=== PATIENT | female | born 1980 | race Caucasian/White ===

== ENCOUNTER → 2019-06-15 | Outpatient (CLI) | payer BC ==
--- NOTE | 2019-06-16 15:23 | MR ---
EXAMINATION TYPE: MR brain wo/w con DATE OF EXAM: 06/15/2019 COMPARISON: MRI brain 7-14 HISTORY: Migraine / Nausea / Headache TECHNIQUE: Multiplanar, multisequence images of the brain and brainstem is performed without and with IV contras t, utilizing 4.5 mL intravenous Gadavist . FINDINGS: The brain volume is age appropriate. Diffusion weighted images demonstrate no evidence of a recent in farct or other diffusion abnormality. Punctate foci of T2/FLAIR hyperintensity within the subcortical white matter of the bifrontal lobes is nonspecific. The cerebellar tonsils are low-lying, stable. No signal abnormalities within the cerebellum, brainstem, or visualized upper cervical spinal cord. There is no extra-axial fluid collection. The ventricular system and cisternal spaces are normal in size and appearance. The dural venous sinuses appear patent. The visualized sinuses are clear and the globes are intact. IMPRESSION: 1. No acute infarct, intracranial hemorrhage, or mass lesion. 2. Stable low-lying cerebellar tonsils.
== END | disposition home or self-care (01) ==
LOC: RADMRIMAIN 14:25
PROVIDERS: ATTEND Family Medicine
DX: G93.89 Other specified disorders of brain (principal); R11.0 Nausea
CPT/HCPCS: 70553; A9585

== ENCOUNTER 2019-07-09 08:10 | Emergency (ER) | payer BC ==
[2019-07-09 08:23] VITALS: TEMP 97.6
[2019-07-09] MEDS ORDERED: KETOROLAC 30 MG/ML 1 ML VIAL IVP STA (08:42)
[2019-07-09] MEDS ORDERED: diphenhydrAMINE 50 MG/ML 1 ML VIAL IVP STA (08:42)
[2019-07-09] MEDS ORDERED: METOCLOPRAMIDE 5 MG/ML 2 ML VIAL IVP STA (08:42)
[2019-07-09] MEDS ORDERED: SODIUM CHLORIDE 0.9% 1,000 ML IV STA (08:42)
--- NOTE | 2019-07-09 08:45 | ED ---
General Adult HPI - General Chief complaint: Headache Stated complaint: migraine Time Seen by Provider: 07/09/19 08:30 Source: patient, RN notes reviewed Mode of arrival: ambulatory Limitations: no limitations - History of Present Illness Initial comments: 38-year-old female with a past medical history of migraines and occipital neuralgia presents to the emergency department for a chief complaint of headache 3 days. Patient states the pain is on the right side of her head and eye. States this feels consistent with previous migraines. States it was gradual onset and denies any maximal intensity at onset. Denies any visual changes. Does admit to light sensitivity and nausea. States that she saw her primary care provider yesterday and was given a Toradol shot without relief. Patient has no other complaints at this time including shortness of breath, chest pain, abdominal pain, nausea or vomiting, or visual changes. - Related Data Home Medications Medication Instructions Recorded Confirmed Calcium Carbonate [Calcium] 600 mg PO DAILY 07/09/19 07/09/19 Cholecalciferol [Vitamin D3 (25 1,000 unit PO DAILY 07/09/19 07/09/19 Mcg = 1000 Iu)] Fexofenadine HCl [Cydney Allergy] 180 mg PO DAILY 07/09/19 07/09/19 Levothyroxine Sodium [Synthroid] 25 mcg PO DAILY 07/09/19 07/09/19 Lo Lestrin Fe 1 tab PO DAILY 07/09/19 07/09/19 Montelukast [Singulair] 10 mg PO DAILY 07/09/19 07/09/19 Multivitamins, Thera [Multivitamin 1 tab PO DAILY 07/09/19 07/09/19 (formulary)] SUMAtriptan SUCCINATE [Imitrex] 100 mg PO DAILY PRN 07/09/19 07/09/19 Topiramate [Topamax] 50 mg PO BID 07/09/19 07/09/19 Allergies Allergy/AdvReac Type Severity Reaction Status Date / Time No Known Allergies Allergy Verified 07/09/19 08:41 Review of Systems ROS Statement: Those systems with pertinent positive or pertinent negative responses have been documented in the HPI. ROS Other: All systems not noted in ROS Statement are negative. Past Medical History Additional Past Medical History / Comment(s): migraines, occipital neuralgia History of Any Multi-Drug Resistant Organisms: None Reported Past Surgical History: Cholecystectomy Additional Past Surgical History / Comment(s): cyst removal Past Psychological History: No Psychological Hx Reported Smoking Status: Never smoker Past Alcohol Use History: None Reported Past Drug Use History: None Reported General Exam Limitations: no limitations General appearance: alert, in no apparent distress Head exam: Present: atraumatic, normocephalic, normal inspection Eye exam: Present: normal appearance, PERRL, EOMI. Absent: scleral icterus, conjunctival injection ENT exam: Present: normal exam, mucous membranes moist Neck exam: Present: normal inspection, full ROM. Absent: tenderness, meningismus, lymphadenopathy Respiratory exam: Present: normal lung sounds bilaterally. Absent: respiratory distress, wheezes, rales, rhonchi, stridor Cardiovascular Exam: Present: regular rate, normal rhythm, normal heart sounds. Absent: systolic murmur, diastolic murmur, rubs, gallop, clicks Neurological exam: Present: alert, oriented X3, CN II-XII intact, normal gait, other (GCS 15) Psychiatric exam: Present: normal affect, normal mood Course Vital Signs 07/09/19 07/09/19 08:21 10:26 Temperature 97.6 F Pulse Rate 87 77 Respiratory 18 16 Rate Blood Pressure 115/78 99/68 O2 Sat by Pulse 100 Oximetry Medical Decision Making - Medical Decision Making 38-year-old female presents to the emergency department for headache. Patient has had an MRI in the past which is normal. States that she has a history of migraines and this is exactly consistent with migraines. States pain is a 7 out of 10 and came on gradually 3 days ago. No focal neuro deficits. Patient was given migraine cocktail with some improvement. She was then given additional pain medication with more significant improvement. States she feels ready to go home at this time. She will follow up with primary care for possible neurology referral and return here if she has any worsening symptoms. - Lab Data Lab Results 07/09/19 Range/Units 08:55 Urine HCG, Qual Not Detected (Not Detectd) Disposition Clinical Impression: Migraine headache Disposition: HOME SELF-CARE Condition: Good Instructions (If sedation given, give patient instructions): Migraine Headache (ED) Additional Instructions: Please follow up with primary care in 1-2 days. Return to the emergency department if you have any worsening symptoms. Is patient prescribed a controlled substance at d/c from ED?: No Referrals: Tristin Oliver III, MD [Primary Care Provider] - 1-2 days Time of Disposition: 10:57
[2019-07-09] MEDS ORDERED: MORPHINE SULFATE 4 MG/ML SYRINGE IVP STA (09:45)
[2019-07-09] MEDS ORDERED: DEXAMETHASONE SOD PHOSPHATE 10 MG/ML 1 ML VIAL IV STA (09:45)
[2019-07-09 10:27] VITALS: BP 99/68; PULSE 77; RESP 16
== END 2019-07-09 11:15 | disposition home or self-care (01) ==
LOC: EC 08:10
DX: G43.909 Migraine, unspecified, not intractable, without status migrainosus (principal); Z32.02 Encounter for pregnancy test, result negative; Z79.890 Hormone replacement therapy; Z79.899 Other long term (current) drug therapy
CPT/HCPCS: 81025; 99283; 96374; 96375 ×4; 96361; J2270; J1200; J1100; J2765; J1885

== ENCOUNTER → 2021-04-01 | Outpatient (CLI) | payer BC ==
--- NOTE | 2021-04-02 11:42 | MM ---
Reason for exam: screening (asymptomatic). Last mammogram was performed 5 years and 3 months ago. History: Family history of breast cancer in mother at age 50 and breast cancer in maternal grandmother at age 50. Taking hormonal contraceptives for 2 years beginning at age 33. Physical Findings: A clinical breast exam by your physician is recommended on an annual basis and results should be correlated with mammographic findings. MG 3D Screening Mammo W/Cad Bilateral CC and MLO view(s) were taken. Prior study comparison: December 24, 2015, bilateral MG screening mammo w CAD. The breast tissue is heterogeneously dense. This may lower the sensitivity of mammography. No significant changes when compared with prior studies. ASSESSMENT: Benign, BI-RAD 2 RECOMMENDATION: Routine screening mammogram of both breasts in 1 year.
== END | disposition home or self-care (01) ==
LOC: RADMAMWWP 06:53
PROVIDERS: ATTEND Family Medicine
DX: Z12.31 Encounter for screening mammogram for malignant neoplasm of breast (principal)
CPT/HCPCS: 77063; 77067

== ENCOUNTER → 2021-04-28 | Outpatient (CLI) | payer BC ==
--- NOTE | 2021-04-28 22:46 | MR ---
EXAMINATION TYPE: MR brain wo/w con DATE OF EXAM: 04/28/2021 COMPARISON: 06/15/2019 HISTORY: Evaluating for possible MS, migraines, smelling issues, history of numbness on left and righ t side. CONTRAST: Performed utilizing 5 mL intravenous Gadavist gadolinium contrast. TECHNIQUE: Multiplanar, multiecho imaging on a 3.0 Barbara magnet is performed through the brain. Stud y is performed within 24 hours of arrival to the hospital. The craniovertebral junction is normal. Tonsillar descent is unchanged from comparison. The pituitary is normal. Diffusion-weighted imaging is performed. No abnormal hyperintensity is present to suggest an acute i ntracranial infarct or acute ischemic change. New white matter changes adjacent to the anterior horn right lateral ventricle measures 0.4 x 0.5 x 0 .2 m. A few subcortical white matter changes in the bilateral centrum semiovale are stable from mirna rison. Findings are nonspecific. Migraine headaches could be considered. Microvascular ischemic lake e could be considered. Multiple sclerosis is not excluded. Cribriform plate appears intact. No inferior frontal lobe abnormality is identified. Ventricles and sulci are appropriate for the patient age. No abnormal enhancement is evident. IMPRESSIONS: 1. Scattered punctate areas of hyperintensity are largely stable from comparison. There is a new 0.4 x 0.5 x 0.2 cm area within the white matter adjacent to the anterior horn right lateral ventricle. Di fferential diagnosis includes but is not limited to migraine headaches, microvascular ischemic change , multiple sclerosis.
== END | disposition home or self-care (01) ==
LOC: RADMRIMAIN 20:36
PROVIDERS: ATTEND Family Medicine
DX: G43.009 Migraine without aura, not intractable, without status migrainosus (principal); R43.8 Other disturbances of smell and taste; R47.01 Aphasia; R20.2 Paresthesia of skin; R25.2 Cramp and spasm
CPT/HCPCS: 70553; A9585

== ENCOUNTER 2021-06-08 06:11 | Day surgery (SDC) | payer BC ==
[2021-06-03 12:49] VITALS: BMI 19.1
[2021-06-08 06:34] VITALS: RESP 16; TEMP 97.9
[2021-06-08] MEDS: LACTATED RINGERS 1,000 ML IV SCH ×3 (06:34→08:56)
[2021-06-08] MEDS ORDERED: LIDOCAINE 1% (10MG/ML) FOR IV START INTRADERMA ONE (06:35)
[2021-06-08] MEDS ORDERED: MIDAZOLAM 2 MG/2 ML VIAL ONE (07:55)
[2021-06-08] MEDS ORDERED: LACTATED RINGERS 1,000 ML IV ONE ×2 (08:14)
--- NOTE | 2021-06-08 08:15 | P.PCN ---
Date of Procedure: 06/08/21 Surgeon: Miles Barboza Pathology: none sent Condition: stable Disposition: PACU Description of Procedure: Procedure=1-lumbar puncture . Preoperative diagnoses= demyelinating lesions in the brain Postoperative diagnosis= same as above Anesthesia= IV sedation with Versed and local lidocaine infiltration 1% 2 mL for skin and subcu infiltration. Condition= stable. Complications=none. Indication for the procedure: The patient was referred to us by her neurologist for diagnostic lumbar puncture to rule out multiple sclerosis. procedure risk and benefits and alternatives discussed with the patient and she was agreeable to proceeding with it. Description of the procedure=the patient was brought into the procedure room and placed in the sitting position , monitors applied, the back prepped with chlorhexidine , skin was localized with 1% lidocaine, then 22-gauge quinckie Needle advanced slowly at L4 -5 interlaminar space to get access to the intrathecal space. The needle bevel turned 90 before entering the thecal sac to decrease the risk of postdural puncture headache. Cerebrospinal fluid was clear with no heme. Only one attempt was needed. No paresthesia was encountered during this procedure .A total of 6 mL of clear cerebrospinal fluid were collected in 4 different tubes, the needle removed, Band-Aid applied , patient tolerated the procedure well without any complications. Further m anagement as per her neurologist.
[2021-06-08 08:56] VITALS: BP 102/68; PULSE 88
[2021-06-08 09:01] LABS: Glucose,CSF 53 mg/dL (40-70); Total Protein,CSF 49 mg/dL (12-60)
[2021-06-08 09:21] LABS: ALT 16 U/L (4-34); AST 29 U/L (14-36)
[2021-06-08 15:28] LABS: Appearance,CSF Clear; CSF Tube Number 3; CSF Tube Volume 1.8; Nucleated Cells, CSF 0 u/L (0-5); Red Blood Cell,CSF 0 u/L (0-10)
[2021-06-08 20:00] LABS: Rheumatoid Factor, Qnt 20 IU/mL (0-15)
[2021-06-08 21:09] LABS: Anti-Smith Ab Interp NEGATIVE (NEGATIVE); DNA Double-Stranded NEGATIVE (NEGATIVE)
[2021-06-10 13:02] LABS: IgG - CSF 2.5 mg/dL (0.0 - 3.4); IgG/Albumin Index (CSF) 0.46 (0.00 - 0.77)
[2021-06-11 10:55] LABS: VDRL, Qualitative CSF Nonreactive (Nonreactive)
== END 2021-06-08 09:05 | disposition home or self-care (01) ==
LOC: ORPAIN 06:11
PROVIDERS: ATTEND Anesthesiology
DX: G93.9 Disorder of brain, unspecified (principal)
CPT/HCPCS: 62270; 81025; 86592; 86235 ×3; 88108; 84157; 82945; 82040; 82042; 82784; 83916; 84436; 84443; 84450; 84460; 86431; 89050; 86618; 86038; 86225; 87801; J2250; 99152

== ENCOUNTER → 2021-06-11 | Day surgery (SDC) | payer BC ==
[~2021-06-11] MED LIST: LACTATED RINGERS 1,000 ML IV ONE; LIDOCAINE 1% (10MG/ML) FOR IV START INTRADERMA ONE
[2021-06-11 13:55] VITALS: TEMP 98.5
--- NOTE | 2021-06-11 15:13 | P.PCN ---
Date of Procedure: 06/11/21 Procedure(s) Performed: Procedure= lumbar epidural blood patch. Preoperative diagnosis= postdural puncture headache. Postoperative diagnoses= post dural puncture headache. Indication for the procedure= patient developed headache after lumbar puncture which was done 2 days ago, headache persists in spite of conservative treatment, there is no focal neurological deficit, no fever, no neck stiffness, headache worse with sitting and standing position, and improved with lying supine, for this reason patient is a good candidate for epidural blood patch. anesthesia= local infiltration with lidocaine 1% 3 mL. Complications= none. Description of the procedure= patient identified risks and benefits of the pr ocedure explained to the patient and patient agreed with proceeding, vital signs monitored during the procedure, Back lumbar area prepped with chlorhexidine 3 times, then drape applied the local infiltration of the skin and subcutaneous tissue with lidocaine 1% 3 mL at L5-S1 interlaminar space then 18-gauge Tuohy needle advanced slowly at L5-S1 interlaminar space, There was positive loss of resistance to normal saline, no heme no paresthesia no cerebrospinal fluid, then after that 20 ML of the blood taken from the patient under strict sterile technique, and after the antecubital area prepped with a chlorhexidine 3 times using 20-gauge Angiocath, and under sterile technique the 20 ML of the block taken from the patient injected in the epidural space after negative aspiration for heme or CSF and there was no paresthesia then the needle removed intact the skin cleaned and the , bandage applied and patient discharged home in stable condition after discharge criteria met, and patient will follow up with the clinic in 2-4 weeks note= the block taken from the right brachial artery because patient was very difficult IV access,
[2021-06-11 15:29] VITALS: BP 113/81; PULSE 50; RESP 17
== END ==
LOC: OR 13:32
PROVIDERS: ATTEND Specialist
DX: G97.1 Other reaction to spinal and lumbar puncture (principal)
CPT/HCPCS: 62273; 81025

== ENCOUNTER 2021-07-03 19:46 | Emergency (ER) | payer BC ==
[2021-07-03 19:51] VITALS: BP 115/81; PULSE 69; RESP 19; TEMP 98.1
[2021-07-03] MEDS ORDERED: SODIUM CHLORIDE 0.9% 1,000 ML IV STA (20:09)
[2021-07-03] MEDS ORDERED: MORPHINE SULFATE 4 MG/ML SYRINGE IV STA (20:09)
[2021-07-03] MEDS ORDERED: diphenhydrAMINE 50 MG/ML 1 ML VIAL IVP STA (20:09)
[2021-07-03] MEDS ORDERED: ONDANSETRON 4 MG/2 ML VIAL IVP STA (20:09)
--- NOTE | 2021-07-03 21:47 | ED ---
Headache HPI - General Chief Complaint: Headache Stated Complaint: migraine Time Seen by Provider: 07/03/21 19:58 Source: patient, RN notes reviewed Mode of arrival: ambulatory - History of Present Illness Initial Comments: Patient is a 40-year-old female that presents to emergency department complaining of a migraine type headache. She notes she does get these occasionally. She notes that this one is slightly worse than her usual and her at home medications did not help. She denied any injury or trauma. She was otherwise well-appearing 40-year-old female. She denied any chest pain shortness of breath vomiting diarrhea constipation fever fatigue chills. - Related Data Home Medications Medication Instructions Recorded Confirmed Calcium Carbonate [Calcium] 600 mg PO DAILY 07/09/19 07/03/21 Cholecalciferol [Vitamin D3 (25 25 mcg PO DAILY 07/09/19 07/03/21 Mcg = 1000 Iu)] Fexofenadine HCl [Cydney Allergy] 180 mg PO DAILY 07/09/19 07/03/21 Levothyroxine Sodium [Synthroid] 25 mcg PO DAILY 07/09/19 07/03/21 Montelukast [Singulair] 10 mg PO DAILY 07/09/19 07/03/21 Multivitamins, Thera [Multivitamin 1 tab PO DAILY 07/09/19 07/03/21 (formulary)] Topiramate [Topamax] 50 mg PO BID 07/09/19 07/03/21 Biotin 10,000 mcg PO DAILY 06/03/21 07/03/21 Calcium Carb/Mag Ox/Zinc Sulf 1 each PO DAILY 06/03/21 07/03/21 [Yfx-Wmh-Apik 334-134-5 mg Tab] Cyanocobalamin (Vitamin B-12) 2,500 mcg PO DAILY 06/03/21 07/03/21 [Vitamin B-12] Galcanezumab-Gnlm [Emgality] 120 mg SQ Q30D 06/03/21 07/03/21 Lo Loestrin Fe 1-10mg 1 tab PO DAILY 07/03/21 07/03/21 Naratriptan HCl 2.5 mg PO DAILY PRN 07/03/21 07/03/21 Allergies Allergy/AdvReac Type Severity Reaction Status Date / Time No Known Allergies Allergy Verified 07/03/21 21:36 Review of Systems ROS Statement: Those systems with pertinent positive or pertinent negative responses have been documented in the HPI. ROS Other: All systems not noted in ROS Statement are negative. Past Medical History Additional Past Medical History / Comment(s): migraines, occipital neuralgia. SEASONAL ALLERGIES. BEING CHECKED FOR POSSIBLE MS History of Any Multi-Drug Resistant Organisms: None Reported Past Surgical History: Cholecystectomy Additional Past Surgical History / Comment(s): cyst removal FROM WRIST Past Anesthesia/Blood Transfusion Reactions: No Reported Reaction Past Psychological History: No Psychological Hx Reported Smoking Status: Never smoker Past Alcohol Use History: None Reported Past Drug Use History: None Reported - Past Family History Mother Family Medical History: Cancer General Exam General appearance: alert, in no apparent distress Head exam: Present: atraumatic, normocephalic, normal inspection Eye exam: Present: normal appearance, PERRL, EOMI. Absent: scleral icterus, conjunctival injection, periorbital swelling ENT exam: Present: normal exam, mucous membranes moist Neck exam: Present: normal inspection Respiratory exam: Present: normal lung sounds bilaterally. Absent: respiratory distress, wheezes, rales, rhonchi, stridor Cardiovascular Exam: Present: regular rate, normal rhythm, normal heart sounds. Absent: systolic murmur, diastolic murmur, rubs, gallop, clicks GI/Abdominal exam: Present: soft, normal bowel sounds. Absent: distended, tenderness, guarding, rebound, rigid Extremities exam: Present: normal inspection, full ROM, normal capillary refill. Absent: tenderness, pedal edema, joint swelling, calf tenderness Neurological exam: Present: alert, oriented X3 Psychiatric exam: Present: normal affect, normal mood Skin exam: Present: warm, dry, intact, normal color. Absent: rash Course Vital Signs 07/03/21 19:48 Temperature 98.1 F Pulse Rate 69 Respiratory 19 Rate Blood Pressure 115/81 O2 Sat by Pulse 98 Oximetry Medical Decision Making - Medical Decision Making 40-year-old female complaining of migraine type headache. 4 mg of morphine, 4 mg Zofran, 50 mg of Benadryl, 1 L normal saline ordered. Upon reevaluation patient states that she is feeling much better and is ready to go home. Case discussed with Dr. Sarmiento, patient can discharge home with follow-up primary care. Disposition Clinical Impression: Migraine headache Disposition: HOME SELF-CARE Condition: Stable Instructions (If sedation given, give patient instructions): Acute Headache (ED) Additional Instructions: Please return to the Emergency Department if symptoms worsen or any other concerns. Is patient prescribed a controlled substance at d/c from ED?: No Referrals: Tristin Oliver III, MD [Primary Care Provider] - 1-2 days Time of Disposition: 21:47
== END 2021-07-03 22:01 | disposition home or self-care (01) ==
LOC: EC 19:46
DX: G43.909 Migraine, unspecified, not intractable, without status migrainosus (principal); Z79.899 Other long term (current) drug therapy
CPT/HCPCS: 99283; 96374; 96375; 96361; J2270; J1200; J2405

== ENCOUNTER → 2022-05-19 | Outpatient (CLI) | payer BC ==
--- NOTE | 2022-05-20 07:06 | MM ---
Reason for Exam: Screening (asymptomatic). Last mammogram was performed 1 year(s) and 2 month(s) ago. Patient History: Menarche at age 12. First Full-Term at age 22. Currently using Hormonal Contraceptives, beginning at age 33 for 8 years. Maternal grandmother had breast cancer, age 50. Mother had breast cancer, age 50. Risk Values: Jessica 5 year model risk: 1.2%. NCI Lifetime model risk: 18.2%. Prior Study Comparison: 12/24/2015 Bilateral Screening Mammogram, [facility]. 04/01/2021 Bilateral Screening Mammogram, [facility]. Tissue Density: The breast tissue is extremely dense which could obscure a lesion on mammography. Findings: Analyzed By CAD. There is no suspicious group of microcalcifications or new suspicious mass in either breast. Overall Assessment: Negative, BI-RAD 1 Management: Screening Mammogram of both breasts in 1 year. Some advise annual bilateral breast ultrasound surveillance in patients with background extremely dense tissue. Electronically signed and approved by: David Temple M.D.
== END | disposition home or self-care (01) ==
LOC: RADMAMWWP 06:51
PROVIDERS: ATTEND Obstetrics & Gynecology
DX: Z12.31 Encounter for screening mammogram for malignant neoplasm of breast (principal)
CPT/HCPCS: 77063; 77067

== ENCOUNTER → 2022-08-16 | Outpatient (CLI) | payer BC | END | disposition home or self-care (01) | LOC: LABWHC1 16:18 | PROVIDERS: ATTEND Otolaryngology | DX: J30.89 Other allergic rhinitis (principal) | CPT/HCPCS: 36415 ==

== ENCOUNTER 2023-01-16 07:42 | Emergency (ER) | payer BC ==
[2023-01-16 07:54] VITALS: TEMP 98.1
[2023-01-16] MEDS ORDERED: DEXAMETHASONE SOD PHOSPHATE 10 MG/ML 1 ML VIAL IVP STA (08:10)
[2023-01-16] MEDS ORDERED: MAGNESIUM SULFATE-D5W PMX 1 GM in DEXTROSE/WATER 1 100ML.BAG IVPB ONE (08:10)
[2023-01-16] MEDS ORDERED: diphenhydrAMINE 50 MG/ML 1 ML VIAL IVP STA (08:10)
[2023-01-16] MEDS ORDERED: SODIUM CHLORIDE 0.9% 1,000 ML IV STA (08:10)
[2023-01-16] MEDS ORDERED: METOCLOPRAMIDE 5 MG/ML 2 ML VIAL IVP STA (08:10)
[2023-01-16] MEDS ORDERED: KETOROLAC 15 MG/ML 1 ML VIAL IVP STA (08:10)
[2023-01-16] MEDS ORDERED: MORPHINE SULFATE 2 MG/ML SYRINGE IVP ONE (10:47)
--- NOTE | 2023-01-16 10:49 | ED ---
General Adult HPI - General Chief complaint: Headache Stated complaint: Migraine Time Seen by Provider: 01/16/23 07:55 Source: patient Mode of arrival: ambulatory Limitations: no limitations - History of Present Illness Initial comments: 42-year-old female with past history of migraine headaches who presents to the emergency department with a migraine. She has had migraines for several years. She is on several medications for her migraines. States that she began having a migraine on night. Has taken all the medications that she has access to at home for her migraines however nothing is improving. She has had a come to the hospital once for a migraine cocktail. She used to follow with a neurologist and has [facility] been [facility]. She has had an MRI and a lumbar puncture with the only diagnosis of migraines. She denies any trauma. No fevers or chills. No trauma. No drug use. Denies concern for . No other alleviating, precipitating or modifying factors - Related Data Home Medications Medication Instructions Recorded Confirmed Calcium Carbonate [Calcium] 600 mg PO DAILY 07/09/19 07/03/21 Cholecalciferol [Vitamin D3 (25 25 mcg PO DAILY 07/09/19 07/03/21 Mcg = 1000 Iu)] Fexofenadine HCl [C[place]ney Allergy] 180 mg PO DAILY 07/09/19 07/03/21 Levothyroxine Sodium [Synthroid] 25 mcg PO DAILY 07/09/19 07/03/21 Montelukast [Singulair] 10 mg PO DAILY 07/09/19 07/03/21 Multivitamins, Thera [Multivitamin 1 tab PO DAILY 07/09/19 07/03/21 (formulary)] Topiramate [Topamax] 50 mg PO BID 07/09/19 07/03/21 Biotin 10,000 mcg PO DAILY 06/03/21 07/03/21 Calcium Carb/Mag Ox/Zinc Sulf 1 each PO DAILY 06/03/21 07/03/21 [Mgw-Agm-Gwzt 334-134-5 mg Tab] Cyanocobalamin (Vitamin B-12) 2,500 mcg PO DAILY 06/03/21 07/03/21 [Vitamin B-12] Galcanezumab-Gnlm [Emgality] 120 mg SQ Q30D 06/03/21 07/03/21 Lo Loestrin Fe 1-10mg 1 tab PO DAILY 07/03/21 07/03/21 Naratriptan HCl [Amerge] 2.5 mg PO DAILY PRN 07/03/21 07/03/21 Allergies Allergy/AdvReac Type Severity Reaction Status Date / Time No Known Allergies Allergy Verified 01/16/23 07:54 Review of Systems ROS Statement: Those systems with pertinent positive or pertinent negative responses have been documented in the HPI. ROS Other: All systems not noted in ROS Statement are negative. Past Medical History Additional Past Medical History / Comment(s): migraines, occipital neuralgia. SEASONAL ALLERGIES. BEING CHECKED FOR POSSIBLE MS History of Any Multi-Drug Resistant Organisms: None Reported Past Surgical History: Cholecystectomy Additional Past Surgical History / Comment(s): cyst removal FROM WRIST Past Anesthesia/Blood Transfusion Reactions: No Reported Reaction Past Psychological History: No Psychological Hx Reported Smoking Status: Never smoker Past Alcohol Use History: None Reported Past Drug Use History: None Reported - Past Family History Mother Family Medical History: Cancer General Exam Limitations: no limitations General appearance: alert, in no apparent distress Head exam: Present: atraumatic, normocephalic, normal inspection Eye exam: Present: normal appearance, PERRL, EOMI. Absent: scleral icterus, conjunctival injection, periorbital swelling ENT exam: Present: normal exam, mucous membranes moist Neck exam: Present: normal inspection. Absent: tenderness, meningismus, lymphadenopathy Respiratory exam: Present: normal lung sounds bilaterally. Absent: respiratory distress, wheezes, rales, rhonchi, stridor Cardiovascular Exam: Present: regular rate, normal rhythm, normal heart sounds. Absent: systolic murmur, diastolic murmur, rubs, gallop, clicks GI/Abdominal exam: Present: soft, normal bowel sounds. Absent: distended, tenderness, guarding, rebound, rigid Extremities exam: Present: normal inspection, full ROM, normal capillary refill. Absent: tenderness, pedal edema, joint swelling, calf tenderness Back exam: Present: normal inspection Neurological exam: Present: alert, oriented X3, CN II-XII intact Psychiatric exam: Present: normal affect, normal mood Skin exam: Present: warm, dry, intact, normal color. Absent: rash Course Vital Signs 01/16/23 01/16/23 07:53 11:00 Temperature 98.1 F Pulse Rate 110 H 89 Respiratory 20 18 Rate Blood Pressure 113/82 102/65 O2 Sat by Pulse 99 98 Oximetry Medical Decision Making - Medical Decision Making Was pt. sent in by a medical professional or institution (KARINA Sinclair, [employer]URING SUPERVISOR, urgent care, hospital, or [facility]...) When possible be specific @ -No Did you speak to anyone other than the patient for history (EMS, parent, family, police, friend...)? What history was obtained from this source @ -No Did you review nursing and triage notes (agree or disagree)? Why? @ -I reviewed and agree with nursing and triage notes Were old charts reviewed (outside hosp., previous admission, EMS record, old EKG, old radiological studies, urgent care reports/EKG's, [facility] records)? Report findings @ -old charts were reviewed Differential Diagnosis (chest pain, altered mental status, abdominal pain women, abdominal pain men, vaginal bleeding, weakness, fever, dyspnea, syncope, headache, dizziness, GI bleed, back pain, seizure, CVA, palpatations, mental health, musculoskeletal)? @ -migraine, SAH, SDH, anerysm, menigitis EKG interpreted by me (3pts min.). @ -No X-rays interpreted by me (1pt min.). @ -No CT interpreted by me (1pt min.). @ -No U/S interpreted by me (1pt. min.). @ -None done What testing was considered but not performed or refused? (CT, X-rays, U/S, labs)? Why? @ -None What meds were considered but not given or refused? Why? @ -None Did you discuss the management of the patient with other professionals (professionals i.e. KARINA Sinclair, [employer]URING SUPERVISOR, lab, RT, psych nurse, social security assessor, tile setter, teacher, animal services officer, community case manager)? Give summary @ -No Was smoking cessation discussed for >3mins.? @ -No Was critical care preformed (if so, how long)? @ -No Were there social determinants of health that impacted care today? How? (Homelessness, low income, unemployed, alcoholism, drug addiction, transportation, low edu. Level, literacy, decrease access to med. care, custodial, rehab)? @ -No Was there de-escalation of care discussed even if they declined (Discuss DNR or withdrawal of care, Hospice)? DNR status @ -No What co-morbidities impacted this encounter? (DM, HTN, Smoking, COPD, CAD, Cancer, CVA, ARF, Chemo, Hep., AIDS, mental health diagnosis, sleep apnea, morbid obesity)? @ -None Was patient admitted / discharged? Hospital course, mention meds given and route, prescriptions, significant lab abnormalities, going to OR and other pertinent info. @ -Upon arrival patient is placed into room 10. A thorough history and physical exam was performed. IV access established. Patient was given a migraine cocktail. She is reevaluated reports that her pain is down to a 5 out of 10. She was given additional dose of morphine. Patient reevaluated reports to continued improvement in her headache. She feels comfortable being discharged home at this time. She felt a primary care doctor to 4 days and return for any new or worsening symptoms per patient was agreeable to plan and was discharged home in stable condition Undiagnosed new problem with uncertain prognosis? @ -No Drug Therapy requiring intensive monitoring for toxicity (Heparin, Nitro, Insu bunny, Cardizem)? @ -No Were any procedures done? @ -No Diagnosis/symptom? @ -acute migraine Acute, or Chronic, or Acute on Chronic? @ -acute on chronic Uncomplicated (without systemic symptoms) or Complicated (systemic symptoms)? @ -complicated Side effects of treatment? @ -allergic reaction Exacerbation, Progression, or Severe Exacerbation? @ -No Poses a threat to life or bodily function? How? (Chest pain, USA, MD, pneumonia, PE, COPD, DKA, ARF, appy, cholecystitis, CVA, Diverticulitis, Homicidal, Suicidal, threat to staff... and all critical care pts) @ -no Disposition Clinical Impression: Migraine headache Disposition: HOME SELF-CARE Condition: Stable Instructions (If sedation given, give patient instructions): Acute Headache (ED) Additional Instructions: Please continue taking all of your home medications as needed and return for any new or worsening symptoms Is patient prescribed a controlled substance at d/c from ED?: No Referrals: Tristin Oliver III, MD [Primary Care Provider] - 1-2 days Time of Disposition: 10:48
[2023-01-16 11:13] VITALS: BP 102/65; PULSE 89; RESP 18
== END 2023-01-16 11:13 | disposition home or self-care (01) ==
LOC: EC 07:42
DX: G43.909 Migraine, unspecified, not intractable, without status migrainosus (principal)
CPT/HCPCS: 99284; 96365; 96375 ×5; 96361; J1200; J1100; J2765; J2270; J3475; J1885

== ENCOUNTER → 2023-04-22 | Outpatient (CLI) | payer BC ==
--- NOTE | 2023-04-22 09:15 | XR ---
EXAMINATION TYPE: XR lumbar spine 2 or 3V DATE OF EXAM: 04/22/2023 CLINICAL HISTORY: pain TECHNIQUE: Three views of the lumbar spine are submitted. COMPARISON: None. FINDINGS: There are 5 lumbar type vertebral bodies identified. The lumbar spine shows satisfactory alignment w ithout evidence of acute fracture or dislocation. Vertebral body heights are within normal limits. Disc spaces are within normal limits. The overlying soft tissue appears unremarkable. Cholecystectom y clips in the right upper quadrant. IMPRESSION: No acute fracture or dislocation is seen in the lumbar spine.
--- NOTE | 2023-04-22 09:16 | XR ---
EXAMINATION TYPE: XR Hip Bilateral Complete DATE OF EXAM: 04/22/2023 9:08 AM INDICATION: Patient age:Female; 42 years old; Reason for study: M25.551, M25.552; [facility]. COMPARISON: None. TECHNIQUE: Both hips were examined in frontal and lateral projections. FINDINGS: No evidence of any acute osseous pathology, joint dislocation, or soft tissue swelling. No disc narrowing or spurring noted. Sclerotic focus within the left femoral head likely representing a benign bone island. Few pelvic phleboliths. IMPRESSION: No acute osseous pathology.
[2023-04-22 23:16] LABS: Basophils # (A) 0.03 X 10*3/uL (0.00-0.10); Basophils % (A) 0.6 %; Eosinophils # (A) 0.09 X 10*3/uL (0.04-0.35); Eosinophils % (A) 1.7 %; HCT 39.2 % (37.2-46.3); HGB 13.5 d/dL (12.0-15.0); Lymphocytes # (A) 1.16 X 10*3/uL (0.90-5.00); Lymphocytes % (A) 21.8 %; MCH 30.8 pg (27.0-32.0); MCHC 34.4 d/dL (32.0-37.0); MCV 89.5 FL (80.0-97.0); Mean Platelet Volume 11.6 FL (9.5-12.2); Monocytes # (A) 0.39 X 10*3/uL (0.20-1.00); Monocytes % (A) 7.3 %; NRBC Per 100 WBC 0 X 10*3/uL (0.00-0.01); Neutrophils # (A) 3.63 X 10*3/uL (1.80-7.70); Neutrophils % (A) 68.4 %; Platelet Count 330 X 10*3/uL (140-440); RBC 4.38 X 10*6/uL (4.10-5.20); RDW 11.6 % (11.5-14.5); WBC 5.31 X 10*3/uL (4.50-10.00)
[2023-04-22 23:33] LABS: Erythrocyte Sedimentation Rate 3 mm/Hr (0-20)
[2023-04-23 00:06] LABS: % Iron Saturation 34.35 (12.00-45.00); ALT 16 U/L (8-44); AST 21 U/L (13-35); Albumin/Globulin Ratio 1.54 Ratio (1.60-3.17); Alkaline Phosphatase 98 U/L (41-126); Blood Urea Nitrogen 8.7 mg/dL (9.0-27.0); Calcium 9.1 mg/dL (8.7-10.3); Carbon Dioxide 22.2 mmol/L (21.6-31.8); Chloride 103 mmol/L (96-109); Chol/HDL Ratio 3.02 Ratio; Creatine Kinase 55 U/L (26-186); Globulin 2.6 d/dL (1.6-3.3); Glucose 93 mg/dL (70-110); Iron 124 UG/DL (50-170); LDL Cholesterol,Calculated 96.7 mg/dL (0.0-131.0); Magnesium 2.2 mg/dL (1.5-2.4); Potassium 4.6 mmol/L (3.5-5.5); Rheumatoid Factor, Qnt <15 IU/mL (0-15); Sodium 137 mmol/L (135-145); Total Bilirubin 0.5 mg/dL (0.3-1.2); Total Iron Binding Capacity 361 UG/DL (228-460); Total Protein 6.6 d/dL (6.2-8.2); VLDL Calculation 13.58 mg/dL (5.00-40.00)
[2023-04-24 12:46] LABS: Cyclic Citrull Pep IgG Unit <1.5 U/mL (<=3.9); Cyclic Citrullinated Pep IgG Negative
== END | disposition home or self-care (01) ==
LOC: LABWHC1 08:27
PROVIDERS: ATTEND Family Medicine
DX: Z00.00 Encounter for general adult medical examination without abnormal findings (principal); G25.81 Restless legs syndrome; M25.551 Pain in right hip; M25.552 Pain in left hip; M54.50 Low back pain, unspecified
CPT/HCPCS: 36415; 72100; 73521; 80053; 80061; 82550; 82607; 82728; 82746; 83540; 83550; 83735; 85025; 85652; 86038; 86140; 86200; 86431

== ENCOUNTER → 2023-06-05 | Outpatient (CLI) | payer BC ==
--- NOTE | 2023-06-06 08:47 | MM ---
Reason for Exam: Screening (asymptomatic). Last screening mammogram was performed 12 month(s) ago. Patient History: Menarche at age 12. First Full-Term at age 22. Patient has history of breast feeding. Currently using Hormonal Contraceptives, beginning at age 33 for 8 years. Maternal grandmother had breast cancer, age 50. Mother had breast cancer, age 50. Last menstrual period: 05/01/2015 Risk Values: Jessica 5 year model risk: 1.3%. NCI Lifetime model risk: 18.0%. Prior Study Comparison: 12/24/2015 Bilateral Screening Mammogram, [facility]. 04/01/2021 Bilateral Screening Mammogram, [facility]. 05/19/2022 Bilateral MG 3D screening mammo w/cad, [facility]. Tissue Density: The breast tissue is heterogeneously dense. This may lower the sensitivity of mammography. Findings: Analyzed By CAD. There is no suspicious group of microcalcifications or new suspicious mass in either breast. Overall Assessment: Negative, BI-RAD 1 Management: Screening Mammogram of both breasts in 1 year. A clinical breast exam by your physician is recommended on an annual basis and results should be correlated with mammographic findings. Note on Jessica scores and lifetime risk: 1. A Jessica score greater than 3% is considered moderate risk. If this is the case, consider specialist referral to assess eligibility for a risk reducing agent. If overall lifetime risk for the development of breast cancer is 20% or higher, the patient may qualify for future screening with alternating mammogram and breast MRI. Electronically signed and approved by: Heriberto Hussein D.O.
== END | disposition home or self-care (01) ==
LOC: RADMAMWWP 16:23
PROVIDERS: ATTEND Obstetrics & Gynecology
DX: Z12.31 Encounter for screening mammogram for malignant neoplasm of breast (principal); Z80.3 Family history of malignant neoplasm of breast
CPT/HCPCS: 77063; 77067

== ENCOUNTER → 2024-02-23 | Outpatient (CLI) | payer BC ==
--- NOTE | 2024-02-23 16:12 | XR ---
Right knee. HISTORY: Pain. COMPARISON: None TECHNIQUE: 2 views of the right knee were obtained. FINDINGS: There is no fracture, dislocation, intraosseous, intra-articular or soft tissue abnormality. There is no joint effusion. IMPRESSION: No significant abnormality seen.
== END | disposition home or self-care (01) ==
LOC: RADXRMAIN 15:28
PROVIDERS: ATTEND Family Medicine
DX: M25.561 Pain in right knee (principal)

== ENCOUNTER → 2024-04-04 | Outpatient (CLI) | payer BC ==
[2024-04-04 10:46] LABS: Basophils # (A) 0.04 X 10*3/uL (0.00-0.10); Basophils % (A) 0.8 %; Eosinophils % (A) 1.9 %; HCT 41.2 % (37.2-46.3); HGB 13.8 g/dL (12.0-15.0); Lymphocytes # (A) 1.21 X 10*3/uL (0.90-5.00); MCH 30.3 pg (27.0-32.0); MCHC 33.5 g/dL (32.0-37.0); MCV 90.4 FL (80.0-97.0); Mean Platelet Volume 10.7 FL (9.5-12.2); Monocytes # (A) 0.42 X 10*3/uL (0.20-1.00); NRBC Per 100 WBC 0 X 10*3/uL (0.00-0.01); Neutrophils # (A) 3.45 X 10*3/uL (1.80-7.70); Neutrophils % (A) 65.7 %; Platelet Count 369 X 10*3/uL (140-440); RBC 4.56 X 10*6/uL (4.10-5.20); RDW 11.9 % (11.5-14.5); WBC 5.25 X 10*3/uL (4.50-10.00)
[2024-04-04 10:58] LABS: BUN/Creat Ratio 7.56 Ratio (12.00-20.00); Blood Urea Nitrogen 6.8 mg/dL (9.0-27.0); Carbon Dioxide 23.7 mmol/L (21.6-31.8); Chloride 102 mmol/L (96-109); Chol/HDL Ratio 3.95 Ratio; Estradiol 43.9 pg/mL; Glucose 88 mg/dL (70-110); LDL Cholesterol,Calculated 115.9 mg/dL (0.0-131.0); Potassium 4.6 mmol/L (3.5-5.5); Rheumatoid Factor, Qnt <15 IU/mL (0-15); Sodium 137 mmol/L (135-145)
[2024-04-04 10:59] LABS: ALT 16 U/L (8-44); AST 20 U/L (13-35); Albumin 4.4 g/dL (3.8-4.9); Albumin/Globulin Ratio 1.63 Ratio (1.60-3.17); Alkaline Phosphatase 97 U/L (41-126); Calcium 9.1 mg/dL (8.7-10.3); Globulin 2.7 g/dL (1.6-3.3); T4, Free (Free Thyroxine) 1.08 ng/dL (0.80-1.80); Total Bilirubin 0.5 mg/dL (0.3-1.2); Total Protein 7.1 g/dL (6.2-8.2)
[2024-04-04 11:06] LABS: Testosterone <10.00 ng/dL (9.01-47.94)
[2024-04-04 12:28] LABS: Follicle Stimulating Hormone 9.8 mIU/mL; Luteinizing Hormone 7.7 mIU/mL
== END | disposition home or self-care (01) ==
LOC: LABWHC1 07:07
PROVIDERS: ATTEND Family Medicine
DX: N92.1 Excessive and frequent menstruation with irregular cycle (principal); M79.7 Fibromyalgia; Z79.899 Other long term (current) drug therapy
CPT/HCPCS: 36415; 80053; 80061; 82670; 83001; 83002; 84144; 84146; 84403; 84439; 84443; 84481; 85025; 86038; 86431

== ENCOUNTER → 2024-07-23 | Outpatient (CLI) | payer BC ==
--- NOTE | 2024-07-24 09:16 | MM ---
Reason for Exam: Screening (asymptomatic). Last mammogram was performed 1 year(s) and 2 month(s) ago. Patient History: Menarche at age 12. First Full-Term at age 22. Patient has history of breast feeding. Currently using Hormonal Contraceptives, beginning at age 33 for 8 years. Maternal grandmother had breast cancer, age 50. Mother had breast cancer, age 50. Mother tested for BRCA1 outcome was negative. Risk Values: Jessica 5 year model risk: 1.4%. NCI Lifetime model risk: 17.9%. Prior Study Comparison: 04/01/2021 Bilateral Screening Mammogram, [facility]. 05/19/2022 Bilateral MG 3D screening mammo w/cad, [facility]. 06/05/2023 Bilateral MG 3D screening mammo w/cad, [facility]. Tissue Density: There are scattered areas of fibroglandular density. Findings: Analyzed By CAD. There is no suspicious group of microcalcifications or new suspicious mass in either breast. Overall Assessment: Negative, BI-RAD 1 Management: Screening Mammogram of both breasts in 1 year. . Patient should continue monthly self-breast exams. A clinical breast exam by your physician is recommended on an annual basis. This exam should not preclude additional follow-up of suspicious palpable abnormalities. Note on Jessica scores and lifetime risk: 1. A Jessica score greater than 3% is considered moderate risk. If this is the case, consider specialist referral to assess eligibility for a risk reducing agent. 2. If overall lifetime risk for the development of breast cancer is 20% or higher, the patient may qualify for future screening with alternating mammogram and breast MRI. [facility], , 07/24/2024 9:13 AM. Electronically signed and approved by: Navid Roberts M.D. Radiolog[facility]
== END | disposition home or self-care (01) ==
LOC: RADMAMWWP 06:48
PROVIDERS: ATTEND Family Medicine
DX: Z12.31 Encounter for screening mammogram for malignant neoplasm of breast
CPT/HCPCS: 77063; 77067